=== PATIENT | female | born 1995 | race Two or more races ===

== ENCOUNTER 2021-01-08 00:09 | Emergency (ER) | payer SELFPAY ==
[2021-01-08 04:27] LABS: CORONAVIRUS COVID-19 NAA NEGATIVE (NEGATIVE); INFLUENZA A NAA NEGATIVE (NEGATIVE); INFLUENZA B NAA NEGATIVE (NEGATIVE); RESPIRATORY SYNCYTIAL VIR NAA NEGATIVE (NEGATIVE)
--- NOTE | 2021-01-08 06:03 | EDM.PDOC ---
ED HPI GENERAL MEDICAL PROBLEM - General Chief Complaint: Fever Stated Complaint: FEVER COUGH SORE THROAT Time Seen by Provider: 01/08/21 02:27 - History of Present Illness INITIAL COMMENTS - FREE TEXT/NARRATIVE: *All discussions had with help of campus recruiting intern CHIEF COMPLAINT(S): Sore throat HISTORY OF PRESENT ILLNESS: This is a 25-year-old woman without any significant past medical history who comes to the emergency department with a chief complaint of sore throat. The patient states that for the last 3 days she has been experiencing a sore throat, ear pain, nasal drainage. She states that she has been taking amoxicillin for this. She states that she got this from [place]. She denies any chest pain, shortness of breath, abdominal pain, nausea or vomiting. She does not have any sick contacts. She does not know if she has been exposed to Covid. She has not tried any Tylenol or Motrin. She denies any cough. She denies any trismus, drooling, stridor, change in voice. She states that the pain is 3 out of 10 she cannot describe the way it feels. There are no aggravating or relieving factors. REVIEW OF SYSTEMS: Constitutional: Denies fever, chills. Eyes: Denies eye pain Ears, Nose, Mouth, & Throat: Positive for sore throat, earache, nasal congestion. Cardiovascular: Denies chest pain Respiratory: Denies shortness of breath Gastrointestinal: Denies Nausea, vomiting, diarrhea, hematochezia. Genitourinary: Denies hematuria Skin:Denies a rash MSK: Denies joint pain Neurological: Denies blurred vision, numbness tingling, weakness Psychiatric: Denies depression PAST MEDICAL HISTORY: As per history of present illness and as reviewed below otherwise noncontributory. SURGICAL HISTORY: As per history of present illness and as reviewed below otherwise noncontributory. SOCIAL HISTORY: As per history of present illness and as reviewed below otherwise noncontributory. FAMILY HISTORY: As per history of present illness and as reviewed below otherwise noncontributory. EXAMINATION OF ORGAN SYSTEMS/BODY AREAS: Constitutional: Blood pressure was 151/88, heart rate 96, respiratory rate 16 with an oxygen saturation of 98% on room air. Temperature 36.2 General: Overall well-appearing woman who is in no acute distress psychiatric: Appropriate mood and affect. Eyes: No scleral icterus or conjunctival erythema ENMT: Moist mucous membranes. Mild pharyngeal erythema no tonsillar exudates or swelling. No trismus, no drooling. No stridor. Bilateral tympanic membranes without any effusion or erythema. No bulging. Bilateral nasal turbinates without any drainage. Cardiovascular: Regular, rate, and rhythm. No gallops, murmurs, or rubs. Bilateral upper extremity pulses symmetric and intact. No peripheral edema. No JVD. Respiratory: Lungs clear to auscultation bilaterally. No wheezes, rales, or rhonchi. Gastrointestinal: Soft, non-tender, non-distended. Normoactive bowel sounds Genitourinary: No suprapubic tenderness Musculoskeletal: Normal range of motion. Skin: No lesions or abrasions. Neurological: Alert, GCS 15 MEDICAL DECISION MAKING AND COURSE IN THE ED WITH INTERPRETATION/REVIEW OF DIAGNOSTIC STUDIES: This is a 25-year-old woman without any significant past medical history who presents with sore throat, bilateral ear pain, nasal drainage. Patient's vitals are completely normal at this time. Her daughter is also having the same symptoms. I did offer obtaining Covid influenza, RSV and strep swabs. She was amenable to this plan. She is currently not requesting any pain medications we will await results. I do not believe any further labs or imaging are indicated. I do believe her symptoms are likely secondary to a viral upper respiratory infection. I did discuss with her that she should stop using antibiotics for viral infections she did express understanding. Laboratory: Covid, influenza, RSV, and group A strep are negative After labs I did discuss with the patient that I do believe this is secondary to a viral URI. I encouraged her to take Tylenol Motrin every 3 hours for pain and fever. For the congestion I did discuss she could use Claritin, Joelle, or Zyrtec to decrease secretions. She is to return for any new or worsening symptoms such as chest pain, shortness of breath, inability to tolerate any fluids. She was amenable discharge at this time and had no further questions. DISPOSITION: The patient was discharged home in stable condition. The patient will follow up with primary care physician in 3 to 5 days CONDITION: Good PROCEDURES: None FINAL IMPRESSION(S)/DIAGNOSES: 1. Acute viral upper respiratory infection 2. Acute viral pharyngitis Jaime Raymond M.D. Throat Pain Score (Numeric/FACES): 3 - Related Data Allergies Allergy/AdvReac Type Severity Reaction Status Date / Time No Known Allergies Allergy Verified 01/08/21 02:33 Home Meds: Home Meds . [No Known Home Meds] 01/08/21 [History] Past Medical History - Past Health History Medical/Surgical History: Denies Medical/Surgical History Social & Family History - Tobacco Use Tobacco Use Status *Q: Never Tobacco User Second Hand Smoke Exposure: No - Caffeine Use Caffeine Use: Reports: None - Recreational Drug Use Recreational Drug Use: No ED ROS GENERAL - Review of Systems Review Of Systems: See Below ED EXAM, GENERAL - Physical Exam Exam: See Below Course - Vital Signs Last Recorded V/S: Last Vital Signs Temp 36.2 C 01/08/21 02:33 Pulse 71 01/08/21 06:56 Resp 17 01/08/21 06:56 BP 129/73 01/08/21 06:56 Pulse Ox 98 01/08/21 06:56 - Orders/Labs/Meds Labs: Laboratory Tests 01/08/21 01/08/21 Range/Units 03:35 03:40 Influenza Type A RNA NEGATIVE (NEGATIVE) RSV RNA (INAAT) NEGATIVE (NEGATIVE) Influenza Type B RNA NEGATIVE (NEGATIVE) SARS-CoV-2 RNA (DORIS) NEGATIVE (NEGATIVE) Group A Strep (PCR) NOT DETECTED (NOT DETECT) Departure - Departure Time of Disposition: 06:01 Disposition: Home, Self-Care 01 Condition: Fair Clinical Impression: Viral URI, Viral pharyngitis - Discharge Information *PRESCRIPTION DRUG MONITORING PROGRAM REVIEWED*: No *COPY OF PRESCRIPTION DRUG MONITORING REPORT IN PATIENT BELKYS: No Instructions: Upper Respiratory Infection, Adult, [id number], Pharyngitis, [id number] Referrals: PCP,None [Primary Care Provider] - Forms: ED Department Discharge Additional Instructions: You were evaluated today on an emergent basis. At this time I do suspect that you have a viral upper respiratory infection and a viral pharyngitis. At this time I do recommend alternating Tylenol and Motrin every 3 hours for pain and fever. You can use gats-eri-kaxwhal Claritin once a day to decrease your secretions in your nose. If you have any worsening shortness of breath, develop chest pain, or unable to tolerate any fluids or food please return to the emergency department. In addition I do recommend stop taking any antibiotics including amoxicillin or Keflex. You have a virus and antibiotics are not needed. Please follow-up with primary care physician. Please use: Tylenol 500-1000mg every 6 hours (DO NOT TAKE MORE THAN 4000mg in 1 day) Ibuprofen 400mg every 6 hours (Take with food as it can cause ulcers, GI upset) Example schedule: 8:00 AM (Tylenol 500-1000mg) 11:00 AM (Ibuprofen 400mg) 2:00 PM (Tylenol 500-1000mg) 5:00 PM (Ibuprofen 400mg) [facility] [address] [place] [id number] [id number] The patient is informed of any results of their evaluation and diagnostic workup and all questions are answered. They are given discharge instructions and return precautions. The patient is stable for discharge. The patient states they understand and agree with the plan and that they will return if their symptoms get worse or if they have any new concerns. The following information is given to patients seen in the emergency department who are being discharged to home. This information is to outline your options for follow-up care. We provide all patients seen in our emergency department with a follow-up referral. The need for follow-up, as well as the timing and circumstances, are variable depending upon the specifics of your emergency department visit. If you don't have a primary care physician on staff, we will provide you with a referral. We always advise you to contact your personal physician following an emergency department visit to inform them of the circumstance of the visit and for follow-up with them and/or the need for any referrals to a consulting specialist. The emergency department will also refer you to a specialist when appropriate. This referral assures that you have the opportunity for follow-up care with a specialist. All of these measure are taken in an effort to provide you with optimal care, which includes your follow-up. Under all circumstances we always encourage you to contact your private physician who remains a resource for coordinating your care. When calling for follow-up care, please make the office aware that this follow-up is from your recent emergency room visit. If for any reason you are refused follow-up, please contact the [facility] Emergency Department at and asked to speak to the emergency department charge nurse. Sepsis Event Note (ED) - Evaluation Sepsis Screening Result: No Definite Risk
== END 2021-01-08 06:57 | disposition home or self-care (01) ==
LOC: MW.ED 00:09
DX: J02.9 Acute pharyngitis, unspecified (principal); J06.9 Acute upper respiratory infection, unspecified; Z20.822 Contact with and (suspected) exposure to COVID-19
CPT/HCPCS: 0241U; 87651; 99283

== ENCOUNTER 2021-07-30 11:22 | Emergency (ER) | payer OTHER ==
[2021-07-30 13:57] LABS: CORONAVIRUS COVID-19 NAA POSITIVE (NEGATIVE); INFLUENZA A NAA NEGATIVE (NEGATIVE); INFLUENZA B NAA NEGATIVE (NEGATIVE)
== END 2021-07-30 13:25 | disposition home or self-care (01) ==
LOC: MW.ED 11:22
DX: U07.1 COVID-19 (principal)
CPT/HCPCS: 0240U; 87070; 87880; 99283